=== PATIENT | male | born 1955 | race African-American/Black ===

== ENCOUNTER 2022-08-20 09:48 | Emergency (ER) | payer OTHER ==
[~2022-08-20] VITALS: Ht 175.3 cm; Wt 80.0 kg
[2022-08-20 09:52] VITALS: BP 0/0
[2022-08-20] MEDS ORDERED: EPINEPHRINE 0.1MG/ML (1:10,000) 10ML SYR ONE (09:58)
[2022-08-20] MEDS ORDERED: NALOXONE HCL 1 MG/ML 2ML VIAL ONE (10:04)
== END 2022-08-20 12:25 ==
LOC: ER 09:58
DX: I46.9 Cardiac arrest, cause unspecified (principal)
CPT/HCPCS: 31500; 92950; 93880; 99291; J2310; J3490